=== PATIENT | male | born 1985 | race Caucasian/White ===

== ENCOUNTER 2021-01-05 21:06 | Emergency (ER) | payer OTHER ==
[~2021-01-05] VITALS: Ht 185.4 cm; Wt 114.5 kg
[2021-01-05 21:41] VITALS: BP 115/74
== END 2021-01-05 23:36 | disposition home or self-care (01) ==
LOC: ER 21:07
DX: S93.602A Unspecified sprain of left foot, initial encounter (principal); M79.672 Pain in left foot; F17.200 Nicotine dependence, unspecified, uncomplicated; Z72.89 Other problems related to lifestyle; X58.XXXA Exposure to other specified factors, initial encounter; Y93.89 Activity, other specified; Y92.89 Other specified places as the place of occurrence of the external cause; Y99.8 Other external cause status
CPT/HCPCS: 73630; 99283